=== PATIENT | male | born 2000 | race Caucasian/White ===

== ENCOUNTER 2025-09-08 11:01 | Day surgery (SDC) | payer BC ==
[~2025-09-08] VITALS: Ht 190.5 cm; Wt 97.9 kg
[~2025-09-08 11:01] MED LIST: ALBU90OI INH; IBUP400 PO; SPACE CHAMBER1 EACH MC; Zithromax250 MG PO
[2025-09-08] MEDS ORDERED: CeFAZolin Sodium 2,000 MG VIAL ONE (11:17)
[2025-09-08] MEDS ORDERED: Lidocaine HCl 2% 10 ML SDA ONE (11:44)
[2025-09-08] MEDS ORDERED: Midazolam HCl 1MG / ML 2ML Vial ONE (12:04)
[2025-09-08] MEDS ORDERED: FentaNYL Citrate 50 MCG/ML 2 ML Injection ONE (12:12)
[2025-09-08] MEDS ORDERED: Ondansetron HCl 2 MG / ML 2ML Vial ONE ×2 (12:23→13:26)
[2025-09-08] MEDS ORDERED: Dexamethasone Sod Phos 10 MG/ML 1ML VIAL ONE (12:23)
[2025-09-08] MEDS ORDERED: Ketorolac Tromethamine 30mg Vial ONE (12:37)
[2025-09-08] MEDS ORDERED: Sugammadex Sodium 200 MG/2ML SDV (100 MG/ML) ONE (12:39)
--- NOTE | 2025-09-08 13:11 | NUR ---
09/08/25 1311 Haven Sanderson, HOSE CEMENTER AT BEDSIDE WITH RESPIRATIONS 2 PER MINUTE, AWARE PT ON 15L O2 NON REBREATHER AND OPA IN PLACE. NEXT SET OF VS RESPIRATIONS 16-22 PER MINUTE.
[2025-09-08 13:49] VITALS: BP 127/88
== END 2025-09-08 14:40 | disposition home or self-care (01) ==
LOC: ORSCSDS 11:01
PROVIDERS: Orthopaedic Surgery
PROC: 0JBH0ZX Excision of Left Lower Arm Subcutaneous Tissue and Fascia, Open Approach, Diagnostic (ICD-10-PCS; principal; 2025-09-08 12:30)
DX: R22.32 Localized swelling, mass and lump, left upper limb (principal); D23.9 Other benign neoplasm of skin, unspecified; J45.909 Unspecified asthma, uncomplicated; F17.290 Nicotine dependence, other tobacco product, uncomplicated
CPT/HCPCS: 88305; 88341; 88342; J0690; J1100; J1885; J2003; J2250; J2405; J2704; J3010